=== PATIENT | male | born 1975 | race Caucasian/White ===

== ENCOUNTER 2023-01-26 09:15 | Emergency (ER) | payer SELFPAY ==
[2023-01-26 09:16] VITALS: BP 198/130; PULSE 84; RESP 14; TEMP 36.4; O2SAT 99; BMI 28.8
--- NOTE | 2023-01-26 09:48 | ED.VIS.LOWEX ---
HPI History of Present Illness Chief Complaint: Lower Extremity Injury Narrative Narrative: 47-year-old male past medical history of hypertension, chronic kidney disease, has not been on medications for months, recently moved towards the area presents with his mother because mainly he is having right ankle pain. He states that he injured it years ago. He does not recall how. He presents with pain on the lateral aspect of his right ankle that he has had for weeks to months. His mother states that he was visiting his children in [place], had flown up from [place], and now is trying to be established here. She was at one of her visits to a provider, and decided to bring him to the emergency department because of his chronic right ankle pain. He denies any new injury. Pain is worse with standing and walking, and mainly on the right side of his lateral ankle. No fevers or chills. No chest pain or shortness of breath, no other symptoms. PFSH PFSH Home Medications hydrochlorothiazide 25 mg tablet 25 mg PO DAILY #30 tabs 01/26/23 [Rx Last Taken Unknown] Allergy/AdvReac Type Severity Reaction Status Date / Time No Known Allergies Allergy Verified 01/26/23 09:17 Social History Smoking Status: Unknown if ever smoked ROS ROS ED ROS Narrative Constitutional: No fever, no chills. HEENT: No sore throat. No neck pain. No loss of vision. No rhinorrhea. Cardiovascular: No chest pain. No palpitations. No pedal edema. Respiratory: No cough, no shortness of breath. Abdominal: No abdominal pain. No nausea. No vomiting. Genitourinary: No dysuria. No hematuria. Musculoskeletal: No myalgias. Right lateral ankle pain times months, worse with standing and walking. Neurologic: No headaches. No dizziness. No lightheadedness. Skin: No rash. No change in color. Psychiatric: No depression. No anxiety. EXAM Physical Exam Narrative Exam Narrative: Afebrile. Vital signs noted. HEENT: Normocephalic. Atraumatic. PERRL, EOMI. Neck soft and supple. No point tenderness or step off. Cardiovascular: Regular rate and rhythm. No murmurs, rubs, or gallops appreciated. Respiratory: No tachypnea. Lungs clear to auscultation bilaterally. Gastrointestinal: Abdomen soft, nontender, with normoactive bowel sounds. No rebound or guarding. Neurological: Awake. Alert. Nonfocal, nonlateralizing. Skin: No rash. Normal color. No pallor. Musculoskeletal: No pedal edema. Full range of motion extremities. Mild tenderness right lateral malleolus and talofibular ligament area. Very prominent lateral malleolus. Palpable dorsalis pedis pulse, right foot. Good capillary refill. No palpable Achilles tendon deficit. No proximal fibular head tenderness. Const Vital Signs: 01/26/23 09:16 Temperature 97.5 F L Temperature Source Temporal Pulse Rate 84 Respiratory Rate 14 Blood Pressure 198/130 H Blood Pressure Mean 152 Pulse Ox 99 Oxygen Delivery Method Room Air MDM MDM MDM Narrative Medical decision making narrative: I do feel that this is more of a chronic problem that he has had for years. However, to look for nonunion from her previous fracture x-rays were obtained of the right ankle in 3 views. It was noticed in triage that his blood pressure is extremely elevated at 198/130. He states he has been out of his medication for months. He is currently asymptomatic with this. However, he was told of the high risk of stroke, myocardial infarction, and other problems with hypertension. He states that he has chronic kidney disease and its hard to control. He did pull up on [place] through the [facility] in [place] that he is supposed to be taking hydrochlorothiazide 25 mg daily. I will restart him on this medication in the short-term and he was given a dose here in the emergency department. I will call him in a prescription, but stressed the importance of follow-up with a primary care provider. I reviewed the patient's x-ray, and interpreted it. 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 I reviewed the radiology report which confirms this. He will be referred to podiatry on-call, Dr. West. In the meantime, he will take [id number] medications as needed. Additionally, regarding his hypertension, he was written a prescription for hydrochlorothiazide No. 30. His mother states that they are planning on following up with the primary care physician within the next month. I feel he can be discharged safely home with follow-up. Return instructions were reviewed. Disposition is discharged home in stable condition. Radiography Diagnostic Testing: Clinical Impression(s) from Imaging Studies Ankle X-Ray 01/26/23 10:10 IMPRESSION: Findings suggestive of osteochondromatosis with the bone formation overlying the lateral malleolus distally. Electronically Signed: Rickey Corado MD at 10:36 EST , Discharge Plan Triage Chief Complaint: Lower Extremity Injury ED Provider: Jeovanny Davis Dx/Rx/DC Orders Clinical Impression: Chronic pain of right ankle, Synovial osteochondromatosis of ankle, Hypertension, Non compliance w medication regimen Instructions: ED Chronic Pain, ED Hypertension, Established Prescriptions: New hydrochlorothiazide 25 mg tablet 25 mg PO DAILY Qty: 30 0RF Primary Care Provider: Care Physician,No Primary Referrals: Ben West DPM [Med Staff - Active Staff] - As soon as possible Care Physician,No Primary [Primary Care Provider] - Activity Restrictions/Additional Instructions: Follow-up with podiatry regarding your chronic right ankle pain. Additionally, take medication as directed. Keep a log of your blood pressure for your new primary care provider. Return with chest pain, shortness of breath, headache, new or worsening symptoms. Disposition Disposition: Home, Self Care
--- NOTE | 2023-01-26 10:10 | RAD_ITS ---
STUDY: X-RAY - RIGHT ANKLE REASON FOR EXAM: Male, 47 years old. Chronic pain. TECHNIQUE: 3 view(s) of the ankle. COMPARISON: None. FINDINGS: Normal visualized distal tibia and fibula. There is a 1.3 cm x 1.6 cm well-corticated bony density along the inferior aspect of the lateral malleolus. There is also evidence of a 1.4 cm x 1.4 cm rounded bony density in the soft tissues overlying the lateral aspect of the hindfoot. Overlying soft tissue swelling. This is suggestive of osteochondromatosis. Normal tibiotalar articulation and ankle mortise. There is evidence of fusion of the talocalcaneal joint. RAD/Ankle min 3 Views IMPRESSION: Findings suggestive of osteochondromatosis with the bone formation overlying the lateral malleolus distally. Electronically Signed: Rickey Corado MD at 10:36 EST ,
[2023-01-26 11:06] VITALS: BP 169/119; PULSE 72; RESP 18
[2023-01-26] MEDS: hydroCHLOROthiazide 25 MG Tablet PO (11:08)
== END 2023-01-26 11:16 | disposition home or self-care (01) ==
PROVIDERS: Emergency Provider Emergency Medicine; Visit Provider Emergency Medicine
DX: D16.31 Benign neoplasm of short bones of right lower limb (principal); G89.29 Other chronic pain; I12.9 Hypertensive chronic kidney disease with stage 1 through stage 4 chronic kidney disease, or unspecified chronic kidney disease; N18.9 Chronic kidney disease, unspecified; Z91.14 Patient's other noncompliance with medication regimen
CPT/HCPCS: 73610; 99283